=== PATIENT | male | born 1980 | race Caucasian/White ===

== ENCOUNTER 2021-06-06 14:44 | Emergency (ER) | payer SELFPAY ==
[~2021-06-06] VITALS: Ht 182.9 cm; Wt 108.9 kg
[2021-06-06 14:55] VITALS: BP 145/81
--- NOTE | 2021-06-06 15:02 | NUR ---
[facility]: RIGHT EYE 20/25, LEFT 20/25, BOTH EYES 20/25
--- NOTE | 2021-06-06 15:35 | NUR ---
40 MALE WITH C/O IRRITATION IN LEFT EYE S/P FOREIGN BODY X 2 DAYS. PT STATES 2 DAYS AGO HE FELT "METAL GO INTO HIS L EYE." PT STATES HE "NOTICED A BLACK SPOT IN HIS EYE X2 DAYS AGO AND CAN FEEL IT EVERYTIME HE OPENS AND CLOSES HIS EYE" PT STATES HE HAS "TRIED RUBBING HIS EYE WITH A TOWEL YESTERDAY TO GET THE FOREIGN BODY OUT." PT ALSO STATES HE "WENT SWIMMING WITH HIS EYES OPEN TO HELP REMOVE THE FOREIGN BODY OUT TODAY." PT STATES THE PAIN IS CONTINOUS AND NOTHING HAS SEEM TO HELPED. PT STATES HE HAS BEEN WAKIN GUP WITH HIS L EYE CRUSTY AND SHUT CLOSE. [facility]: RIGHT EYE 20/25, LEFT 20/25, BOTH EYES 20/25 BLOOD CLOT LEFT LLOWER LEG 5 YEARS A GO
[2021-06-06] MEDS ORDERED: FLUORESCEIN OPTH STRIP 1 MG OP ONE (15:40)
[2021-06-06] MEDS ORDERED: TETRACAINE HCL/PF 0.5% OPTH 4 ML BTL OP ONE (15:50)
[2021-06-06] MEDS ORDERED: OFLOS LEFT EYE (16:05)
[2021-06-06 16:16] VITALS: BP 145/81
--- NOTE | 2021-06-06 16:17 | NUR ---
Patient discharged with v/s stable. Written and verbal after care instructions given and explained. Patient alert, oriented and verbalized understanding of instructions. Ambulatory with steady gait. All questions addressed prior to discharge. ID band removed. Patient advised to follow up with PMD. Rx of OFLOXACIN 5 ML DROPS QID DAILY FOR 7 DAYS given. Patient educated on indication of medication including possible reaction and side effects. Opportunity to ask questions provided and answered.
== END 2021-06-06 16:17 | disposition home or self-care (01) ==
LOC: MED 14:44
DX: T15.02XA Foreign body in cornea, left eye, initial encounter (principal); I51.9 Heart disease, unspecified; X58.XXXA Exposure to other specified factors, initial encounter; Y93.89 Activity, other specified; Y92.89 Other specified places as the place of occurrence of the external cause; Y99.8 Other external cause status
CPT/HCPCS: 99283